=== PATIENT | male | born 1985 | race Caucasian/White ===

== ENCOUNTER 2017-02-16 11:49 | Emergency (ER) | payer OTHER ==
[~2017-02-16] VITALS: Ht 167.6 cm; Wt 142.9 kg
[~2017-02-16 11:49] MED LIST: AMLO10TA2 PO; CITA20TA9 PO; NICO1PAT15 TOP
--- OUTSIDE RECORDS SUMMARY | 2017-02-16 11:52 | XMS REPORT | Continuity of Care Document ---
Author Author [facility] Organization [facility] Address Unknown Phone Unavailable Support Name Relationship Address Phone NGOC BURKETT Caregiver [facility] [address] [place] [address] ANNE GRANT MD Caregiver [address] [place] [address] COMPA CLAIRE Next Of Kin [address] [place] [address] Insurance Providers Payer Name Policy Number Subscriber Name Relationship Self Pay Rodríguez Lopez 17 Self Problems Medical Problems Problem Onset Date Status Uvular edema Unknown Active Pharyngitis Unknown Active Uvular edema Unknown Active Diverticulitis Unknown Active Diverticulitis Unknown Active Lumbar strain Unknown Active Lumbar strain Unknown Active Medications Medication Dose Route Sig Days/Qty Instructions Order Date Discontinued Date Status [None] 02/13/10 02/22/10 Discontinued [Cepacol] 02/22/10 10/15/12 Discontinued Erythromycin Base THREE TIMES A DAY 02/22/10 10/15/12 Discontinued Hydrocodone Bit/Acetaminophen 02/22/10 10/15/12 Discontinued Citalopram Hydrobromide 30 Mg PO DAILY 10/15/12 Active Tramadol HCl 50 Mg PO EVERY 6-8 HOURS PRN PRN ORDERS 20 Qty 12/25/14 Active Methocarbamol 750 Mg PO THREE TIMES A DAY For SPASMS 12 Qty Take 1 tablet , by mouth, 3 times a day. 12/25/14 Active Social History Social History Problem Response Recorded Date/Time Hx Substance Use No 12/25/2014 6:03pm Hx Alcohol Use No 12/25/2014 6:03pm Tobacco Usage none 09/30/2014 3:21pm Query Response Start Date Stop Date Smoking Status Current every day smoker Hospital Discharge Instructions No hospital discharge instructions. Plan of Care No plan of care. Functional Status Query Response Date Recorded Physical Hygiene Self December 25, 2014 6:03pm Disabilities None December 25, 2014 6:03pm Devices Used None December 25, 2014 6:03pm Dressing Self December 25, 2014 6:03pm Ambulation Self December 25, 2014 6:03pm Diet Self December 25, 2014 6:03pm Mental Status Alert Oriented December 25, 2014 6:03pm Disabilities None December 25, 2014 6:03pm Devices Used None December 25, 2014 6:03pm Physical Hygiene Self December 25, 2014 6:03pm Dressing Self December 25, 2014 6:03pm Ambulation Self December 25, 2014 6:03pm Diet Self December 25, 2014 6:03pm Allergies, Adverse Reactions, Alerts Allergen Type Severity Reaction Status Last Updated hydroxyzine HCl Allergy Unknown Active 09/30/14 Penicillin Allergy Unknown Active 09/30/14 [place] Allergy Mild diarrhea Active 09/30/14 Cefaclor Allergy Unknown Active 09/30/14 Aripiprazole Allergy Mild Parkinsonian effects Active 09/30/14 [place] Allergy Mild Hives Active 11/09/09 Immunizations Name Given Type Hx Influenza Vaccination No Historical Hx Influenza Vaccination No Historical Vital Signs Acute Vital Signs Vital Response Date/Time Temperature (Fahrenheit) 96.3 deg F (96.8 - 99.1) Temperature (Calculated Celsius) 35.87570 degrees C (36.0 - 37.3) Pulse Rate (adult) 83 bpm (60 - 100) Respiratory Rate 16 breaths/min (10 - 20) O2 Sat by Pulse Oximetry 95 % (90 - 100) Blood Pressure 165/83 mm Hg Height 5 ft 6 in Weight 352 lb Body Mass Index 56.0 kg/m^2 Results Test Source Date Result Interp. Ref. Range Comments Acetaminophen Level November 09, 2009 9:55pm < 10 UG/ML L 10-30 Alanine Aminotransferase (ALT/SGPT) September 30, 2014 11:42am 54 U/L N 21-72 Albumin September 30, 2014 11:42am 4.3 G/DL N 3.5-5.0 Albumin/Globulin Ratio September 30, 2014 11:42am 1.1 RATIO N 1.1-2.2 Alcohol, Quantitative November 09, 2009 9:55pm <10 MG/DL - Alkaline Phosphatase September 30, 2014 11:42am 89 U/L N 38-126 Amylase Level September 30, 2014 11:42am 39 U/L N 30-110 Anion Gap September 30, 2014 11:42am 9 MEQ/L N 5-15 Aspartate Amino Transf (AST/SGOT) September 30, 2014 11:42am 39 U/L N 17- 59 BUN/Creatinine Ratio September 30, 2014 11:42am 13 RATIO N 6-26 Band Neutrophils # September 30, 2014 11:42am 0.4 T/MM3 - Band Neutrophils % September 30, 2014 11:42am 3.0 % N 0-6 Basophils # (Auto) November 09, 2009 9:55pm 0.1 T/MM3 N 0-0.2 Basophils (%) (Auto) November 09, 2009 9:55pm 1.3 % N 0-2 Blood Smear Pathologist Review October 15, 2012 6:08am Sent for review - Blood Urea Nitrogen September 30, 2014 11:42am 12.0 MG/DL N 9-20 Calcium Level September 30, 2014 11:42am 9.1 MG/DL N 8.4-10.2 Calculated Osmolality September 30, 2014 11:42am 271 MOSM/KG N 261-280 Carbon Dioxide Level September 30, 2014 11:42am 29 MEQ/L N 22-30 Chloride Level September 30, 2014 11:42am 103 MEQ/L N 98-107 Creatinine September 30, 2014 11:42am 0.9 MG/DL N 0.8-1.5 Differential Total Cells Counted February 16, 2010 8:42pm 100 % - Eosinophils # (Auto) November 09, 2009 9:55pm 0.4 T/MM3 N 0-0.5 Eosinophils # (Manual) September 30, 2014 11:42am 0.6 T/MM3 H 0-0.5 Eosinophils % (Manual) September 30, 2014 11:42am 4.0 % N 0-4 Eosinophils (%) (Auto) November 09, 2009 9:55pm 3.1 % N 0-4 Globulin September 30, 2014 11:42am 3.8 G/DL H 2.4-3.6 Glucose Level September 30, 2014 11:42am 93 MG/DL N 75-110 Group A Streptococcus Screen July 24, 2014 8:38am Negative - Strep culture confirmation to follow Hematocrit September 30, 2014 11:42am 49.3 % N 41-53 Hemoglobin September 30, 2014 11:42am 16.4 GM/DL N 13.5-17.5 Influenza Type A Antigen February 13, 2010 11:15am Negative - Influenza Type B Antigen February 13, 2010 11:15am Negative - Leukocyte Alkaline Phosphatase October 15, 2012 6:08am Ref lab rpt scanned - --- 10/16/12 1341 ---LAP previously reported as: SEND OUT Lipase September 30, 2014 11:42am 83 U/L N 23-300 Lymphocytes # (Auto) November 09, 2009 9:55pm 3.3 T/MM3 N 1-4.8 Lymphocytes # (Manual) September 30, 2014 11:42am 2.2 T/MM3 N 1-4.8 Lymphocytes % (Manual) September 30, 2014 11:42am 15.0 % L 23-45 Lymphocytes (%) (Auto) November 09, 2009 9:55pm 29.0 % N 23-45 Mean Corpuscular Hemoglobin September 30, 2014 11:42am 32.7 UUG N 26-34 Mean Corpuscular Hemoglobin Concent September 30, 2014 11:42am 33.3 GM/DL N 31-37 Mean Corpuscular Volume September 30, 2014 11:42am 98.2 UM3 N 80-100 Mean Platelet Volume September 30, 2014 11:42am 10.5 UM3 N 9.4-12.4 Monocytes # (Auto) November 09, 2009 9:55pm 0.9 T/MM3 H 0-0.8 Monocytes # (Manual) September 30, 2014 11:42am 0.4 T/MM3 N 0-0.8 Monocytes % (Manual) September 30, 2014 11:42am 3.0 % N 0-9.0 Monocytes (%) (Auto) November 09, 2009 9:55pm 8.1 % N 0-9.0 Monoscreen February 16, 2010 8:42pm Negative - Neutrophils # (Auto) November 09, 2009 9:55pm 6.6 T/MM3 N 1.8-7.7 Neutrophils # (Manual) September 30, 2014 11:42am 11.1 T/MM3 H 1.8-7.7 Neutrophils % (Manual) September 30, 2014 11:42am 75.0 % H 33-66 Neutrophils (%) (Auto) November 09, 2009 9:55pm 58.5 % N 33-66 Platelet Count September 30, 2014 11:42am 245 T/MM3 N 130-400 Potassium Level September 30, 2014 11:42am 4.7 MEQ/L N 3.6-5 RDW Standard Deviation September 30, 2014 11:42am 48.1 FL N 36.9-50.2 Red Blood Count September 30, 2014 11:42am 5.02 M/MM3 N 4.50-5.90 Salicylates Level November 09, 2009 9:55pm < 1.0 MG/DL L 2-20 Sodium Level September 30, 2014 11:42am 141 MEQ/L N 134-144 Tests Not Done November 09, 2009 9:45pm Not done - Has specimen been collected/obtained? Y Thyroid Stimulating Hormone (TSH) August 07, 2012 3:50pm 2.27 MIU/L N 0.47-4.68 Total Bilirubin September 30, 2014 11:42am 0.90 MG/DL N 0.20-1.30 Total Protein September 30, 2014 11:42am 8.1 G/DL N 6.3-8.2 Urine Amphetamines Screen November 09, 2009 9:45pm Negative - Urine Barbiturates Screen November 09, 2009 9:45pm Negative - Urine Benzodiazepines Screen November 09, 2009 9:45pm Negative - Urine Bilirubin September 30, 2014 1:20pm Negative - Has specimen been collected/obtained? Y Urine Blood September 30, 2014 1:20pm Negative - Has specimen been collected/obtained? Y Urine Cocaine Screen November 09, 2009 9:45pm Negative - Urine Collection Type September 30, 2014 1:20pm Cleancatch-midstream - Has specimen been collected/obtained? Y Urine Color September 30, 2014 1:20pm Yellow - Has specimen been collected/obtained? Y Urine Glucose (UA) September 30, 2014 1:20pm Negative - Has specimen been collected/obtained? Y Urine Ketones September 30, 2014 1:20pm Negative - Has specimen been collected/obtained? Y Urine Leukocyte Esterase September 30, 2014 1:20pm Negative - Has specimen been collected/obtained? Y Urine Nitrite September 30, 2014 1:20pm Negative - Has specimen been collected/obtained? Y Urine Opiates Screen November 09, 2009 9:45pm Negative - Urine Phencyclidine Screen November 09, 2009 9:45pm Negative - Urine Protein September 30, 2014 1:20pm Negative - Has specimen been collected/obtained? Y Urine Specific [place] September 30, 2014 1:20pm <=1.005 L - Has specimen been collected/obtained? Y Urine Tricyclic Antidepressants November 09, 2009 9:45pm Negative - Urine Turbidity September 30, 2014 1:20pm Clear - Has specimen been collected/obtained? Y Urine Urobilinogen September 30, 2014 1:20pm 0.2 EU/DL - Has specimen been collected/obtained? Y Urine pH September 30, 2014 1:20pm 5.5 - Has specimen been collected/ obtained? Y Vitamin B12 Level October 15, 2012 6:08am 304 PG/ML N 239-931 White Blood Count September 30, 2014 11:42am 14.8 T/MM3 H 4.5-11.0 Chemistry Specimen Hemolysis September 30, 2014 11:42am 114 H 0-25 0-25 : No Hemolysis.26-70: Slight Hemolysis - can falsely elevate K and Urine Protein. 71-285: Moderate Hemolysis - can falsely elevate K, Troponin I, CA 19-9, PTH, CSF GLucose, and Urine Protein, and can falsely decrease Phenytoin. 286-999: Gross Hemolysis - can falsely elevate K, Troponin I, CA 19-9, PTH, CSF Glucose, and Urine Protine, and can falsely decrease Phenytoin. Recommend specimen recollection. Urinalysis Comment September 30, 2014 1:20pm Microscopic not ind. - Has specimen been collected/obtained? Y Lab Scanned Report October 16, 2012 1:43pm REFER[facility] LAB [id number] - Urine Cannabinoids Screen November 09, 2009 9:45pm Negative - Turbidity September 30, 2014 11:42am < 20 0-20 Reactive Lymphocytes % October 08, 2012 5:17pm 12.0 % DH 0-0 Glomerular Filtration Rate Calc September 30, 2014 11:42am 99 - Reactive Lymphocytes # October 08, 2012 5:17pm 1.8 T/MM3 H 0-0 Icterus Index September 30, 2014 11:42am < 2 0-7 Group A Streptococcus Culture Throat July 24, 2014 8:54am Name: RODRÍGUEZ LOPEZ Unit #: [id number] : 1985 Sex: M [facility] [place]: ED DOS: 09/30/14 Signed Report #: [id number] DIAGNOSTIC IMAGING REPORT TYPE OF EXAM: CT ABD/PELVIS W/CONTRAST ONLY Dictated By: ERICKA WARREN MD INDICATION: ITS.REASON: abdominal pain CT ABD/PELVIS W/CONTRAST ONLY: Comparison: None Technique: Axial CT images were performed through the abdomen and pelvis after the administration of intravenous contrast. Contrast: Omnipaque 300 100 mL Findings: The lung bases are grossly clear. The liver is decreased in attenuation relative to the spleen consistent with steatosis. Large gallstone within the gallbladder. No obvious pericholecystic inflammatory change or fluid however. The spleen, pancreas and adrenal glands are within normal limits. Kidneys appear normal. No abdominal or pelvic lymphadenopathy. Bladder appears normal. Prostate and rectum are normal. No free fluid. Inflammatory changes are seen adjacent to the proximal sigmoid colon. No extraluminal gas or abscess. There are some fluid-filled mildly prominent loops of small bowel near this area probably representing a reactive ileus. These measure up to 3.7 cm in diameter. Remainder of the small and large bowel appear normal. The appendix is normal. Bone windows are normal. Impression: 1. Acute uncomplicated sigmoid diverticulitis. 2. Cholelithiasis. 3. Hepatic steatosis. . Procedures Procedure Status Date Provider(s) HYDRATE IV INFUSION ADD-ON completed 09/30/14 THER/PROPH/DIAG IV INF INIT completed 09/30/14 TX/PRO/DX INJ NEW DRUG ADDON completed 09/30/14 TX/PRO/DX INJ NEW DRUG ADDON completed 09/30/14 Encounters Encounter Location Date/Time Registered Emergency Room [facility] 12/25/14 5:54pm Departed Emergency Room [facility] 09/30/14 11:16am Recent Diagnosis
--- OUTSIDE RECORDS SUMMARY | 2017-02-16 11:52 | XMS REPORT | Continuity of Care Document ---
Author Author [facility] Organization [facility] Address Unknown Phone Unavailable Allergies Active Description Code Type Severity Reaction Onset Reported/Identified Relationship to Patient Clinical Status Yes cefaclor NKMA N/A N/A 03/15/2014 Medications Problems Procedures Results Encounters ACCT No. Visit Date/Time Discharge Status Pt. Type Provider Facility Loc./Unit Complaint [id number] 02/01/2016 09:57:00 2015 23:59:00 DIS Outpatient Meenakshi Granados [facility] PO [id number] 01/07/2016 11:44:00 2015 23:59:00 DIS Outpatient Raj Garcia [facility] HERNIA
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
--- OUTSIDE RECORDS SUMMARY | 2017-02-16 11:52 | XMS REPORT | Continuity of Care Document ---
Author Author [facility] Organization [facility] Address Unknown Phone Unavailable Support Name Relationship Address Phone ANNE GRANT MD Caregiver [address] [place], [place] [id number] CYDNEY SANABRIA MD Caregiver [address] [place] [address] [place] [phone] [employer] Next Of Kin [address] [place] [address] Insurance Providers Payer Name Policy Number Subscriber Name Relationship Self Pay Rodríguez Lopez 18 Self Problems Medical Problems Problem Onset Date Status Uvular edema Unknown Active Pharyngitis Unknown Active Medications Medication Dose Route Sig Days/Qty Instructions Order Date Discontinued Date Status [None] 02/13/10 02/22/10 Discontinued [Cepacol] 02/22/10 10/15/12 Discontinued Erythromycin Base THREE TIMES A DAY 02/22/10 10/15/12 Discontinued [Ibuprofen] 02/22/10 Active Hydrocodone Bit/Acetaminophen 02/22/10 10/15/12 Discontinued Olanzapine 5 Mg PO DAILY 10/15/12 Active Citalopram Hydrobromide 30 Mg PO DAILY 10/15/12 Active Naproxen 200 Mg PO NEEDED 10/15/12 Active Azithromycin 1 Tab PO DAILY 4 Qty YOU RECEIVED TWO TABS TODAY IN ER. 10/25 Active Social History Social History Problem Response Recorded Date/Time Smoking Status Heavy Smoker 07/24/2014 8:22am When did patient START smoking? AGE 11 07/24/2014 8:22am Chewing Tobacco Status No 07/24/2014 8:22am Hx Substance Use No 07/24/2014 8:22am Hx Alcohol Use No 07/24/2014 8:22am Query Response Start Date Stop Date Smoking Status Current every day smoker Hospital Discharge Instructions No hospital discharge instructions. Plan of Care No plan of care. Functional Status Query Response Date Recorded Physical Hygiene Self July 24, 2014 8:22am Disabilities None July 24, 2014 8:22am Devices Used None July 24, 2014 8:22am Dressing Self July 24, 2014 8:22am Ambulation Self July 24, 2014 8:22am Diet Self July 24, 2014 8:22am Mental Status Alert Oriented July 24, 2014 8:22am Disabilities None July 24, 2014 8:22am Devices Used None July 24, 2014 8:22am Physical Hygiene Self July 24, 2014 8:22am Dressing Self July 24, 2014 8:22am Ambulation Self July 24, 2014 8:22am Diet Self July 24, 2014 8:22am Allergies, Adverse Reactions, Alerts Allergen Type Severity Reaction Status Last Updated hydroxyzine HCl Allergy Unknown Active 07/24/14 Penicillin Allergy Unknown Active 07/24/14 Kieler Allergy Mild diarrhea Active 07/24/14 Cefaclor Allergy Unknown Active 07/24/14 Aripiprazole Allergy Mild Parkinsonian effects Active 07/24/14 MORPHENE Allergy Mild Hives Active 11/09/09 Immunizations Name Given Type Hx Influenza Vaccination No Historical Hx Influenza Vaccination No Historical Vital Signs Acute Vital Signs Vital Response Date/Time Temperature (Fahrenheit) 96.6 deg F (96.8 - 99.1) Temperature (Calculated Celsius) 35.90502 degrees C (36.0 - 37.3) Pulse Rate (adult) 90 bpm (60 - 100) Respiratory Rate 16 breaths/min (10 - 20) O2 Sat by Pulse Oximetry 94 % (90 - 100) Blood Pressure 161/100 mm Hg Height 5 ft 6 in Weight 331 lb Body Mass Index 53.0 kg/m^2 Results Test Source Date Result Interp. Ref. Range Comments Acetaminophen Level November 09, 2009 9:55pm < 10 UG/ML L 10-30 Alanine Aminotransferase (ALT/SGPT) February 22, 2010 7:10pm 18 U/L L 21- 72 Albumin February 22, 2010 7:10pm 4.38 G/DL N 3.5-5.0 Albumin/Globulin Ratio February 22, 2010 7:10pm 1.0 RATIO L 1.1-2.2 Alcohol, Quantitative November 09, 2009 9:55pm <10 MG/DL - Alkaline Phosphatase February 22, 2010 7:10pm 99 U/L N 38-126 Anion Gap February 22, 2010 7:10pm 10.8 MEQ/L N 5-15 Aspartate Amino Transf (AST/SGOT) February 22, 2010 7:10pm 34 U/L N 17-59 BUN/Creatinine Ratio February 22, 2010 7:10pm 9 RATIO N 6-26 Band Neutrophils # October 08, 2012 5:17pm 1.1 T/MM3 - Band Neutrophils % October 08, 2012 5:17pm 7.0 % H 0-6 Basophils # (Auto) November 09, 2009 9:55pm 0.1 T/MM3 N 0-0.2 Basophils (%) (Auto) November 09, 2009 9:55pm 1.3 % N 0-2 Blood Smear Pathologist Review October 15, 2012 6:08am Sent for review - Blood Urea Nitrogen February 22, 2010 7:10pm 8.9 MG/DL L 9-20 Calcium Level February 22, 2010 7:10pm 9.6 MG/DL N 8.4-10.2 Calculated Osmolality February 22, 2010 7:10pm 269 MOSM/KG N 261-280 Carbon Dioxide Level February 22, 2010 7:10pm 31 MEQ/L H 22-30 Chloride Level February 22, 2010 7:10pm 99 MEQ/L N 98-107 Creatinine February 22, 2010 7:10pm 1.0 MG/DL N 0.8-1.5 Differential Total Cells Counted February 16, 2010 8:42pm 100 % - Eosinophils # (Auto) November 09, 2009 9:55pm 0.4 T/MM3 N 0-0.5 Eosinophils # (Manual) October 08, 2012 5:17pm 0.3 T/MM3 N 0-0.5 Eosinophils % (Manual) October 08, 2012 5:17pm 2.0 % N 0-4 Eosinophils (%) (Auto) November 09, 2009 9:55pm 3.1 % N 0-4 Globulin February 22, 2010 7:10pm 4.4 G/DL H 2.4-3.6 Glucose Level February 22, 2010 7:10pm 85 MG/DL N 75-110 Group A Streptococcus Screen July 24, 2014 8:38am Negative - Strep culture confirmation to follow Hematocrit October 08, 2012 5:17pm 50.7 % N 41-53 Hemoglobin October 08, 2012 5:17pm 16.9 GM/DL N 13.5-17.5 Influenza Type A Antigen February 13, 2010 11:15am Negative - Influenza Type B Antigen February 13, 2010 11:15am Negative - Leukocyte Alkaline Phosphatase October 15, 2012 6:08am Ref lab rpt scanned - --- 10/16/12 1341 ---LAP previously reported as: SEND OUT Lymphocytes # (Auto) November 09, 2009 9:55pm 3.3 T/MM3 N 1-4.8 Lymphocytes # (Manual) October 08, 2012 5:17pm 2.9 T/MM3 N 1-4.8 Lymphocytes % (Manual) October 08, 2012 5:17pm 19.0 % L 23-45 Lymphocytes (%) (Auto) November 09, 2009 9:55pm 29.0 % N 23-45 Mean Corpuscular Hemoglobin October 08, 2012 5:17pm 32.5 UUG N 26-34 Mean Corpuscular Hemoglobin Concent October 08, 2012 5:17pm 33.3 GM/DL N 31-37 Mean Corpuscular Volume October 08, 2012 5:17pm 97.5 UM3 N 80-100 Mean Platelet Volume October 08, 2012 5:17pm 10.6 UM3 N 9.4-12.4 Monocytes # (Auto) November 09, 2009 9:55pm 0.9 T/MM3 H 0-0.8 Monocytes # (Manual) October 08, 2012 5:17pm 0.9 T/MM3 H 0-0.8 Monocytes % (Manual) October 08, 2012 5:17pm 6.0 % N 0-9.0 Monocytes (%) (Auto) November 09, 2009 9:55pm 8.1 % N 0-9.0 Monoscreen February 16, 2010 8:42pm Negative - Neutrophils # (Auto) November 09, 2009 9:55pm 6.6 T/MM3 N 1.8-7.7 Neutrophils # (Manual) October 08, 2012 5:17pm 8.1 T/MM3 H 1.8-7.7 Neutrophils % (Manual) October 08, 2012 5:17pm 54.0 % N 33-66 Neutrophils (%) (Auto) November 09, 2009 9:55pm 58.5 % N 33-66 Platelet Count October 08, 2012 5:17pm 267 T/MM3 N 130-400 Potassium Level February 22, 2010 7:10pm 4.8 MEQ/L DN 3.6-5 RDW Standard Deviation October 08, 2012 5:17pm 45.9 FL N 36.9-50.2 Red Blood Count October 08, 2012 5:17pm 5.20 M/MM3 N 4.50-5.90 Salicylates Level November 09, 2009 9:55pm < 1.0 MG/DL L 2-20 Sodium Level February 22, 2010 7:10pm 141 MEQ/L N 134-144 Tests Not Done November 09, 2009 9:45pm Not done - Has specimen been collected/obtained? Y Thyroid Stimulating Hormone (TSH) August 07, 2012 3:50pm 2.27 MIU/L N 0.47-4.68 Total Bilirubin February 22, 2010 7:10pm 0.46 MG/DL N 0.20-1.30 Total Protein February 22, 2010 7:10pm 8.8 G/DL H 6.3-8.2 Urine Amphetamines Screen November 09, 2009 9:45pm Negative - Urine Barbiturates Screen November 09, 2009 9:45pm Negative - Urine Benzodiazepines Screen November 09, 2009 9:45pm Negative - Urine Bilirubin November 09, 2009 9:45pm Negative - Has specimen been collected/obtained? Y Urine Blood November 09, 2009 9:45pm Negative - Has specimen been collected/obtained? Y Urine Cocaine Screen November 09, 2009 9:45pm Negative - Urine Collection Type November 09, 2009 9:45pm Voided - Has specimen been collected/obtained? Y Urine Color November 09, 2009 9:45pm Yellow - Has specimen been collected/obtained? Y Urine Glucose (UA) November 09, 2009 9:45pm Negative - Has specimen been collected/obtained? Y Urine Ketones November 09, 2009 9:45pm Negative - Has specimen been collected/obtained? Y Urine Leukocyte Esterase November 09, 2009 9:45pm Negative - Has specimen been collected/obtained? Y Urine Nitrite November 09, 2009 9:45pm Negative - Has specimen been collected/obtained? Y Urine Opiates Screen November 09, 2009 9:45pm Negative - Urine Phencyclidine Screen November 09, 2009 9:45pm Negative - Urine Protein November 09, 2009 9:45pm Negative - Has specimen been collected/obtained? Y Urine Specific [place] November 09, 2009 9:45pm 1.010 L - Has specimen been collected/obtained? Y Urine Tricyclic Antidepressants November 09, 2009 9:45pm Negative - Urine Turbidity November 09, 2009 9:45pm Clear - Has specimen been collected/obtained? Y Urine Urobilinogen November 09, 2009 9:45pm Normal EU/DL - Has specimen been collected/obtained? Y Urine pH November 09, 2009 9:45pm 8.0 - Has specimen been collected/ obtained? Y Vitamin B12 Level October 15, 2012 6:08am 304 PG/ML N 239-931 White Blood Count October 08, 2012 5:17pm 15.0 T/MM3 H 4.5-11.0 Lab Scanned Report October 16, 2012 1:43pm [facility] [id number] - Urine Cannabinoids Screen November 09, 2009 9:45pm Negative - Reactive Lymphocytes % October 08, 2012 5:17pm 12.0 % DH 0-0 Glomerular Filtration Rate Calc February 22, 2010 7:10pm 91 - Reactive Lymphocytes # October 08, 2012 5:17pm 1.8 T/MM3 H 0-0 Group A Streptococcus Culture Throat February 13, 2010 11:15am Procedures No known history of procedures. Encounters Encounter Location Date/Time Departed Emergency Room [facility] 07/24/14 8:06am Recent Diagnosis
--- OUTSIDE RECORDS SUMMARY | 2017-02-16 11:52 | XMS REPORT | Continuity of Care Document ---
Author Author [facility] Organization [facility] Address Unknown Phone Unavailable Support Name Relationship Address Phone NGOC BURKETT DO Caregiver [facility] [address] [place] [address] ANNE GRANT MD Caregiver [address] [place] [address] [employer] Next Of Kin [address] [place] [address] Insurance Providers Payer Name Policy Number Subscriber Name Relationship Self Pay Rodríguez Lopez 18 Self Problems Medical Problems Problem Onset Date Status Uvular edema Unknown Active Pharyngitis Unknown Active Uvular edema Unknown Active Diverticulitis Unknown Active Medications Medication Dose Route Sig Days/Qty Instructions Order Date Discontinued Date Status [None] 02/13/10 02/22/10 Discontinued [Cepacol] 02/22/10 10/15/12 Discontinued Erythromycin Base THREE TIMES A DAY 02/22/10 10/15/12 Discontinued Hydrocodone Bit/Acetaminophen 02/22/10 10/15/12 Discontinued Citalopram Hydrobromide 30 Mg PO DAILY 10/15/12 Active Metronidazole 500 Mg PO Q6H/0300,0900,1500,2100 For diverticulitis 7 Days Take 1 tablet, by mouth, every 6 hours. 09/30/14 Active Ciprofloxacin HCl 500 Mg PO EVERY 12 HOURS For diverticulitis 7 Days Active Hydrocodone/Acetaminophen 1 Tab PO EVERY 4-6 HOURS PRN PAIN 20 Qty Active Ondansetron 4 Mg PO EVERY 4-6 HOURS For nausea 12 Qty 09/30/14 Active Social History Social History Problem Response Recorded Date/Time Smoking Status Light Smoker 09/30/2014 11:26am When did patient START smoking? AGE 12 09/30/2014 11:26am Hx Substance Use No 09/30/2014 11:26am Hx Alcohol Use No 09/30/2014 11:26am Query Response Start Date Stop Date Smoking Status Current every day smoker Hospital Discharge Instructions No hospital discharge instructions. Plan of Care No plan of care. Functional Status Query Response Date Recorded Physical Hygiene Self September 30, 2014 11:26am Disabilities None September 30, 2014 11:26am Devices Used None September 30, 2014 11:26am Dressing Self September 30, 2014 11:26am Ambulation Self September 30, 2014 11:26am Diet Self September 30, 2014 11:26am Mental Status Alert Oriented September 30, 2014 11:26am Disabilities None September 30, 2014 11:26am Devices Used None September 30, 2014 11:26am Physical Hygiene Self September 30, 2014 11:26am Dressing Self September 30, 2014 11:26am Ambulation Self September 30, 2014 11:26am Diet Self September 30, 2014 11:26am Allergies, Adverse Reactions, Alerts Allergen Type Severity Reaction Status Last Updated hydroxyzine HCl Allergy Unknown Active 09/30/14 Penicillin Allergy Unknown Active 09/30/14 Brenda Allergy Mild diarrhea Active 09/30/14 Cefaclor Allergy Unknown Active 09/30/14 Aripiprazole Allergy Mild Parkinsonian effects Active 09/30/14 MORPHENE Allergy Mild Hives Active 11/09/09 Immunizations Name Given Type Hx Influenza Vaccination No Historical Hx Influenza Vaccination No Historical Vital Signs Acute Vital Signs Vital Response Date/Time Temperature (Fahrenheit) 97.8 deg F (96.8 - 99.1) Temperature (Calculated Celsius) 36.73447 degrees C (36.0 - 37.3) Pulse Rate (adult) 75 bpm (60 - 100) Respiratory Rate 16 breaths/min (10 - 20) O2 Sat by Pulse Oximetry 97 % (90 - 100) Blood Pressure 166/84 mm Hg Height 5 ft 5 in Weight 353 lb Body Mass Index 58.0 kg/m^2 Results Test Source Date Result Interp. [...] Has specimen been collected/obtained? Y Urine Specific [place] September 30, 2014 1:20pm <=1.005 L - [...] Report October 16, 2012 1:43pm [facility] [id number] - Urine Cannabinoids Screen November 09, 2009 [...] 2014 8:54am Name: RODRÍGUEZ LOPEZ Unit #: [id number] : 1985 Sex: M Loc / Svc: ED DOS: 09/30/14 Signed Report #: [id number] DIAGNOSTIC IMAGING REPORT TYPE OF EXAM: CT [...] 2. Cholelithiasis. 3. Hepatic steatosis. . Procedures No known history of procedures. Encounters Encounter Location Date/Time Departed Emergency Room [facility] 09/30/14 11:16am Departed Emergency Room [facility] 07/24/14 8:06am Recent Diagnosis
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
[2017-02-16 11:53] VITALS: Ht 167.6 cm; Wt 142.9 kg
[2017-02-16] MEDS ORDERED: LISI1TAB13 PO (12:12)
[2017-02-16] MEDS ORDERED: CITA20TA9 PO (12:13)
[2017-02-16] MEDS ORDERED: IBUP-2067 PO (12:14)
[2017-02-16] MEDS ORDERED: CLIN300C86 PO (12:15)
--- NOTE | 2017-02-16 12:55 | NUR ---
OFFICER SERGEANT Primo VALDEZ AT BEDSIDE WITH PT, HAS REMAINED THERE SINCE ADMISSION TO ER. PT REMAINS IN HAND CUFFS, CHAIN AROUND WAIST.
--- OUTSIDE RECORDS SUMMARY | 2017-02-16 12:56 | XMS REPORT | Continuity of Care Document ---
Author Author [facility] Organization [facility] Address Unknown Phone Unavailable Support Name Relationship Address Phone ANNE GRANT MD Caregiver [address] [place], [place] [id number] CYDNEY SANABRIA MD Caregiver [address] [place] [address] [place] [phone] [employer] Next Of Kin [address] [place] [address] Insurance Providers Payer Name Policy Number Subscriber [...] Active 07/24/14 Penicillin Allergy Unknown Active 07/24/14 [employer] Allergy Mild diarrhea Active 07/24/14 Cefaclor Allergy Unknown Active 07/24/14 Aripiprazole Allergy Mild Parkinsonian effects Active 07/24/14 MORPHENE Allergy Mild Hives Active 11/09/09 Immunizations Name Given Type Hx Influenza Vaccination No Historical Hx Influenza Vaccination No Historical Vital Signs Acute Vital Signs Vital Response Date/Time Temperature (Fahrenheit) 96.6 deg F (96.8 - 99.1) Temperature (Calculated Celsius) 35.87541 degrees C (36.0 - 37.3) Pulse Rate [...] Has specimen been collected/obtained? Y Urine Specific [place] November 09, 2009 9:45pm 1.010 L - [...] Report October 16, 2012 1:43pm [facility] [id number] - Urine Cannabinoids Screen November 09, 2009 [...] Encounters Encounter Location Date/Time Departed Emergency Room [facility] 07/24/14 8:06am Recent Diagnosis
--- OUTSIDE RECORDS SUMMARY | 2017-02-16 12:57 | XMS REPORT | Continuity of Care Document ---
Author Author [facility] Organization [facility] Address Unknown Phone Unavailable Support Name Relationship Address Phone NGOC BURKETT Caregiver [facility] [address] [place] [address] ANNE GRANT MD Caregiver [address] [place] [address] COMPA CLAIRE Next Of Kin [address] [place] [address] Insurance Providers Payer Name Policy Number Subscriber [...] Active 09/30/14 Penicillin Allergy Unknown Active 09/30/14 [place] Allergy Mild diarrhea Active 09/30/14 Cefaclor Allergy Unknown Active 09/30/14 Aripiprazole Allergy Mild Parkinsonian effects Active 09/30/14 MORPHENE Allergy Mild Hives Active 11/09/09 Immunizations Name Given Type Hx Influenza Vaccination No Historical Hx Influenza Vaccination No Historical Vital Signs Acute Vital Signs Vital Response Date/Time Temperature (Fahrenheit) 96.3 deg F (96.8 - 99.1) Temperature (Calculated Celsius) 35.87450 degrees C (36.0 - 37.3) Pulse Rate [...] Has specimen been collected/obtained? Y Urine Specific [place] September 30, 2014 1:20pm <=1.005 L - [...] Report October 16, 2012 1:43pm REFERENCE LAB [id number] - Urine Cannabinoids Screen November 09, 2009 [...] 2014 8:54am Name: RODRÍGUEZ LOPEZ Unit #: [id number] : 1985 Sex: M [facility]: ED DOS: 09/30/14 Signed Report #: [id number] DIAGNOSTIC IMAGING REPORT TYPE OF EXAM: CT [...] Encounters Encounter Location Date/Time Registered Emergency Room [facility] 12/25/14 5:54pm Departed Emergency Room [facility] 09/30/14 11:16am Recent Diagnosis
--- OUTSIDE RECORDS SUMMARY | 2017-02-16 12:57 | XMS REPORT | Continuity of Care Document ---
Author Author [facility] Organization [facility] Address Unknown Phone Unavailable Support Name Relationship Address Phone NGOC BURKETT DO Caregiver [facility] [address] [address] ANNE GRANT MD Caregiver [address] [place] [address] COMPA OLESYATwan Next Of Kin [address] [place] [address] Insurance Providers Payer Name Policy Number Subscriber [...] Active 09/30/14 Penicillin Allergy Unknown Active 09/30/14 [place]wey Allergy Mild diarrhea Active 09/30/14 Cefaclor Allergy Unknown Active 09/30/14 Aripiprazole Allergy Mild Parkinsonian effects Active 09/30/14 MORPHENE Allergy Mild Hives Active 11/09/09 Immunizations Name Given Type Hx Influenza Vaccination No Historical Hx Influenza Vaccination No Historical Vital Signs Acute Vital Signs Vital Response Date/Time Temperature (Fahrenheit) 97.8 deg F (96.8 - 99.1) Temperature (Calculated Celsius) 36.99667 degrees C (36.0 - 37.3) Pulse Rate [...] Has specimen been collected/obtained? Y Urine Specific [place] September 30, 2014 1:20pm <=1.005 L - [...] Report October 16, 2012 1:43pm REFERENCE LAB [id number] - Urine Cannabinoids Screen November 09, 2009 [...] 2014 8:54am Name: RODRÍGUEZ LOPEZ Unit #: [id number] : 1985 Sex: M Loc / Svc: ED DOS: 09/30/14 Signed Report #: [id number] DIAGNOSTIC IMAGING REPORT TYPE OF EXAM: CT [...] Encounters Encounter Location Date/Time Departed Emergency Room [facility] 09/30/14 11:16am Departed Emergency Room [facility] 07/24/14 8:06am Recent Diagnosis
--- OUTSIDE RECORDS SUMMARY | 2017-02-16 12:57 | XMS REPORT | Continuity of Care Document ---
Author Author [facility] Organization [facility] Address Unknown Phone Unavailable Allergies Active Description Code Type Severity Reaction Onset Reported/Identified Relationship to Patient Clinical Status Yes cefaclor NKMA N/A N/A 03/15/2014 Medications Problems Procedures Results Encounters ACCT No. Visit Date/Time Discharge Status Pt. Type Provider Facility Loc./Unit Complaint [id number] 02/01/2016 09:57:00 2015 23:59:00 DIS Outpatient Meenakshi Granados [facility] PO [id number] 01/07/2016 11:44:00 2015 23:59:00 DIS Outpatient Raj Garcia [facility] HERNIA
--- NOTE | 2017-02-16 13:06 | NUR ---
DR DR ESPINOZA AT BEDSIDE.
[2017-02-16] MEDS ORDERED: NORMAL SALINE 1,000 ML IV ONE (13:15)
[2017-02-16 13:31] LABS: BASOPHILS % (AUTO) 0.3 % (0-2); EOSINOPHILS # (AUTO) 0.2 T/MM3 (0-0.5); EOSINOPHILS % (AUTO) 1.9 % (0-4); HCT - HEMATOCRIT 45.4 % (41-53); HGB - HEMOGLOBIN 15.5 GM/DL (13.5-17.5); IMMATURE GRANULOCYTE # (AUTO) 0.02 T/MM3 (0.00-0.03); IMMATURE GRANULOCYTE % (AUTO) 0.2 % (0.0-0.5); LYMPHOCYTES # (AUTO) 2.1 T/MM3 (1-4.8); LYMPHOCYTES % (AUTO) 19.4 % (23-45); MEAN CORPUSCULAR HGB 32.2 UUG (26-34); MEAN CORPUSCULAR HGB CONC(MCHC 34.1 GM/DL (31-37); MEAN CORPUSCULAR VOLUME 94.4 UM3 (80-100); MEAN PLATELET VOLUME 11.1 UM3 (9.4-12.4); MONOCYTES # (AUTO) 0.8 T/MM3 (0-0.8); MONOCYTES % (AUTO) 7.2 % (0-9.0); NEUTROPHILS #(AUTO)-ABSOLUTE 7.6 T/MM3 (1.8-7.7); RED BLOOD COUNT 4.81 M/MM3 (4.50-5.90); WBC - WHITE BLOOD COUNT 10.8 T/MM3 (4.5-11.0)
--- NOTE | 2017-02-16 13:40 | NUR ---
CT PT TO CT [facility].
[2017-02-16 13:41] LABS: ANION GAP 10 MEQ/L (5-15); BUN/CREATININE RATIO 9 RATIO (6-26); CALCIUM 9.7 MG/DL (8.4-10.2); CHLORIDE 107 MEQ/L (98-107); CO2 - CARBON DIOXIDE 29 MEQ/L (22-30); CREATININE 0.7 MG/DL (0.8-1.5); GLOMERULAR FILTRATION RATE 131; GLUCOSE 92 MG/DL (75-110); SODIUM 146 MEQ/L (134-144)
[2017-02-16] MEDS ORDERED: IOHEXOL 300 MG/ML 50ml INJECTION ONE (13:43)
[2017-02-16] MEDS ORDERED: SALINE FLUSH 10ml SYRINGE ONE (13:43)
[2017-02-16] MEDS ORDERED: NORMAL SALINE 100 ML ONE (13:43)
--- NOTE | 2017-02-16 13:51 | NUR ---
CT PT RETURNED.
--- NOTE | 2017-02-16 14:06 | DI ---
Indication: ITS.REASON: dental pain, swelling PROCEDURE: CT MAXILLOFACIAL W/CONTRAST: Encounter: Initial Comparison: None Technique: Axial postcontrast CT imaging through the midface was performed with coronal and sagittal two-dimensional reformats. Automated Exposure Control and Iterative Reconstruction dose reducing techniques were utilized. Contrast: Omnipaque 300 49mL Findings: Dental pathology with a periapical abscess involving the right first mandibular molar. Large dental caries within the mandibular molars and premolars bilaterally. No acute maxillofacial fracture seen. The paranasal sinuses are clear. There is significant inflammation in the left prezygomatic and infraorbital area extending into the left maxillary region where there is a prominent periapical abscess surrounding the left maxillary canine. There is evidence of a small subperiosteal abscess adjacent to the tooth measuring 1 x 0.4 cm on axial image #32. The globes are intact. Lenses are located. No post septal inflammation seen. No drainable fluid collection identified. Small bilateral reactive submandibular lymph nodes are noted. Impression: Periodontal and dental disease with a periapical abscess involving the left maxillary canine which has extended into the soft tissues with a small subperiosteal abscess and extensive cellulitis in the left infraorbital and preseptal area. Recommend dental consultation. .
--- NOTE | 2017-02-16 14:23 | NUR ---
STATUS DR ESPINOZA AT BEDSIDE. PT STATES DENTAL PAIN 7-06/21. SERGEANT REMAINS AT BEDSIDE.
[2017-02-16] MEDS ORDERED: AZITHROMYCIN 500 MG in NORMAL SALINE 250 ML IV ONE (15:15)
--- NOTE | 2017-02-16 15:18 | NUR ---
PHARMACY NOTIFIED PHARMACY OF NEED FOR 500MG IV AZITHROMYCIN IN 250ML.
[2017-02-16] MEDS ORDERED: AZIT500T2 PO (15:27)
--- NOTE | 2017-02-16 15:27 | ERPDOC ---
Departure Disposition Decision Date: Feb 16, 2017 Disposition Decision Time: 15:23 Disposition: 01 DISCHARGED HOME, SELF-CARE Impression Impression Impression: Primary Impression: Pain, dental Additional Impression: Periapical abscess Severity: Moderate Condition: Improved Seen By: Physician only Referrals: [facility] 2 Days Patient Instructions: Dental Abscess (ED), Dental Caries (ED), Toothache (ED) Problems/Meds/Labs Reviewed?: Yes Medications reviewed and manag: Yes Additional Instructions: Please see Dr. Jermain Armas in the office on Sunday. Call for appointment time. [address] [place] [address] Follow up care ordered?: Yes Mental Status: Alert, Oriented Scripts Azithromycin (Zithromax Tri-Reggie) 500 Mg Tablet 500 MG PO DIRECTED, #1 PACK 0 Refills 2 TABLETS FOR 1 DAY THEN, 1 TABLET FOR 4 DAYS Prov: KYLAH ESPINOZA DO 02/16/17 HPI - EENT General General Chief Complaint: Toothache Stated Complaint: TOOTH PAIN, INFECTED TOOTH Time Seen by Provider: 12:29 Source: patient Exam Limitations: no limitations HPI - EENT General Initial Comments 31-year-old male presents to the emergency department with a chief complaint of dental pain. Patient noted dental pain and swelling to the left side of his face 2 weeks ago. Symptoms have been persistent in nature since onset. Symptoms had a gradual progression. Patient was started on clindamycin 2 weeks ago and has been compliant with his medications. He has not noted any improvement in his symptoms. Patient has not followed up with his dentist in the past 2 weeks. Patient denies any systemic symptoms or other complaints. Pain is moderate. Pain is dull. There is no radiation. Pain increases with chewing and direct pressure to the affected area. Occurred At: other (Nursing Home) Onset/Timing: Gradual Allergies: Coded Allergies: aripiprazole (Verified Allergy, Mild, Parkinsonian effects, 02/16/17) lithium (Verified Allergy, Mild, diarrhea, 02/16/17) Penicillins (Verified Allergy, Unknown, 02/16/17) cefaclor (Verified Allergy, Unknown, 02/16/17) hydroxyzine HCl (Verified Allergy, Unknown, 02/16/17) morphine (Verified Adverse Reaction, Mild, HIVES, 02/16/17) Past History Past Medical History ENMT: sleep apnea Respiratory: asthma, pneumonia GI: other Neurological: headaches, migraines Hematologic: DVT Psychological: anxiety, depression, other Surgical History General: other, tonsils Family History Family PMH: FOUND: diabetes, migraines Vaccines Hx Influenza Vaccination: No Hx Pneumococcal Vaccination: No Social History Smoking Status: Current every day smoker Does patient use chewing tobac: No # of Packs/Tins per Day: 1 # of Years: 10 Substance Use Type: does not use Alcohol Intake: none Sexuality: female partner Review of Systems Constitutional Constitutional: DENIES: chills, fever Eyes General: DENIES: erythema, exudate Lids/Accessories: DENIES: erythema, swelling Vision: DENIES: acuity, blurring ENMT Ears: DENIES: drainage, erythema Hearing: DENIES: hearing loss Balance: DENIES: ataxia, falling to one side Sinuses: DENIES: congestion, pain Nose: DENIES: nosebleeds, pain Mouth/Throat: DENIES: painful swallowing, sore throat Teeth: pain Jaw: DENIES: pain Cardiovascular Cardiac: DENIES: chest pain, dyspnea on exertion Rhythm/Rate: DENIES: irregular beat, palpitations Vascular: DENIES: pedal edema, unilateral swelling Pulmonary Respiratory: DENIES: cough, dyspnea, pleuritic chest pain, sputum GI Upper Abdomen: DENIES: nausea, pain, vomiting Lower Abdomen: DENIES: diarrhea, pain General: DENIES: dysuria, frequency Musculoskeletal General: DENIES: joint pain, pain, tenderness Integumentary Skin: DENIES: itching, rash Neurological General: DENIES: headache, numbness, weakness Psychiatric Psychiatric: DENIES: emotional instability, suicidal ideation/attempt Endocrine Endocrine: DENIES: polydipsia, polyphagia Hematologic/Lymphatic Hematologic/Lymphatic: DENIES: frequent nosebleeds, lymphadenopathy Allergic/Immunological Allergic/Immunoligical: DENIES: allergic reactions, hives Physical Exam General General Nourishment: well nourished, well developed, appears stated age, no acute distress, adult General Body Habitus: well groomed Vitals and Pain First Documented Vital Signs Date Time Temp Pulse Resp B/P Pulse Ox O2 Delivery O2 Flow Rate FiO2 02/16/17 11:53 98.3 63 16 124/58 96 Room Air Weight: Kilograms: 142.900 Height (feet): 5 Height (inches): 6.00 Triage Pain Scale: RN VS reviewed by Provider: Yes Normal Exams: Head: Normocephalic w/o trauma Eyes: Pupils are PERRLA w/ EOMI, No scleral icterus, irritation, or foreign bodies noted ENMT: No facial trauma, nasal exudates, pharyngeal erythema, or exudates are noted Neck: Full range of motion, without adenopathy, JVD, bruits or thyromegaly Chest/Resp: Clear all morales, with good airflow, and symmetry bilaterally CV: Regular rate and rhythm, without murmur or gallop, Pulses 2+ all extremities, capillary refill, <2 seconds all ext., no pedal edema noted Abdomen: Bowel sounds positive, soft, non-tender, non-distended, no hepatosplenomegaly, masses or bruits noted Lymphatic: No lymphadenopathy, or lymphedema noted Musculoskeletal: No tenderness, or deformity noted, good range of motion, all extremities Integumentary: No rashes, hives, or bruising noted, hair and nails, without abnormality Neurologic: Patient is alert, and oriented, cranial nerves, motor/sensory/ cerebellar, exams w/o gross deficits, to observation Psychiatric: Patient exhibits, appropriate attention, emotion and affect ENMT (brief) Comments Oral - tooth #13 is tender to percussion. Positive mild facial swelling without cellulitis. Uvula midline. Voice is normal. Handling secretions without difficulty. No pharyngeal erythema. No tonsillar exudate. No elevation of tongue. Diffusely poor dentition with caries noted. Differential Diagnoses Considering: Other (dental pain/dental caries/dental abscess/dental trauma) Progress Results/Orders Orders Procedure Category Date Status Time Bmp - Basic Metabolic LAB 02/16/[address] 02/16/17 Resulted W/Contrast 13:12 Cbc W/Auto LAB 02/16/17 Complete Diff-Reflex Manual Normal Saline (Normal PHA 02/16/17 Complete Saline Iv) 13:15 Iohexol (Omnipaque) PHA 02/16/17 Complete 13:43 Normal Saline (Ns) PHA 02/16/17 Complete 13:43 Saline Flush (Iv PHA 02/16/17 Complete Flush) 13:43 Azithromycin PHA 02/16/17 Complete (Zithromax) 15:15 Hydrocodone/Acetaminophen PHA 02/16/17 Complete (Masterson 5/325) 15:30 Lab Results Laboratory Tests Test 02/16/17 13:23 White Blood Count 10.8T/MM3 Red Blood Count 4.81M/MM3 Hemoglobin 15.5GM/DL Hematocrit 45.4% Mean Corpuscular Volume 94.4UM3 Mean Corpuscular Hemoglobin 32.2UUG Mean Corpuscular Hemoglobin Concent 34.1GM/DL RDW Standard Deviation 43.6FL Platelet Count 242T/MM3 Mean Platelet Volume 11.1UM3 Immature Granulocyte % (Auto) 0.2% Neutrophils (%) (Auto) 71.0% Lymphocytes (%) (Auto) 19.4% Monocytes (%) (Auto) 7.2% Eosinophils (%) (Auto) 1.9% Basophils (%) (Auto) 0.3% Absolute Immature Granulocyte (auto 0.02T/MM3 Absolute Neutrophils (auto) 7.6T/MM3 Absolute Lymphocytes (auto) 2.1T/MM3 Absolute Monocytes (auto) 0.8T/MM3 Absolute Eosinophils (auto) 0.2T/MM3 Absolute Basophils (auto) 0.0T/MM3 Turbidity < 20 Sodium Level 146MEQ/L Potassium Level 4.0MEQ/L Chloride Level 107MEQ/L Carbon Dioxide Level 29MEQ/L Anion Gap 10MEQ/L Blood Urea Nitrogen 6.0MG/DL Creatinine 0.7MG/DL Glomerular Filtration Rate Calc 131 BUN/Creatinine Ratio 9RATIO Glucose Level 92MG/DL Calculated Osmolality 279MOSM/KG Calcium Level 9.7MG/DL Icterus Index < 2 Chemistry Specimen Hemolysis < 15 Medications Current ED Medications Sodium Chloride (Normal Saline IV) 1,000 ml @ 999 mls/hr Q1H1M ONCE IV Last administered on 02/16/17t 13:26; Start 02/16/17 at 13:15; Stop 02/16/17 at 14:15; Status DC Iohexol 1 bottle 1 bottle STK-MED ONCE .ROUTE ; Start 02/16/17 at 13:43; Stop 02/16/17 at 13:44; Status DC Sodium Chloride (NS) 100 ml @ As Directed STK-MED ONCE .ROUTE ; Start 02/16/17 at 13:43; Stop 02/16/17 at 13:44; Status DC Sodium Chloride 10 ml 10 ml STK-MED ONCE .ROUTE ; Start 02/16/17 at 13:43; Stop 02/16/17 at 13:44; Status DC Azithromycin/ Sodium Chloride (Zithromax/NS) 250 ml @ 250 mls/hr O ONCE IV Last administered on 02/16/17 15:57; Start 02/16/17 at 15:15; Stop 02/16/17 at 16: 14; Status DC Acetaminophen/ Hydrocodone Bitart (Masterson 5/325) 1 tab O ONCE PO Last administered on 02/16/17 15:43; Start 02/16/17 at 15:30; Stop 02/16/17 at 15:31; Status DC Progress Progress Labs/imaging were discussed in detail with the patient and questions are answered. Patient is given analgesic pain medication with improvement of symptoms in the emergency department. Patient's CT scan and presentation is reviewed in detail with Dr. Alexander Armas of oral surgery who recommends switching the patient to Zithromax secondary to the patient's complaints and ALLERGIES. He also recommends providing an outpatient prescription of Zithromax after IV infusion and with close outpatient follow-up with him in his office on Sunday. Patient verbalizes agreement and understanding. Patient is discharged home in improved condition. Recommendations from oral surgery are followed. Close follow-up for the patient is obtained for Sunday morning with Dr. Alexander Armas. Patient is to return to the emergency department if his condition worsens or changes in any manner. Patient is to use [id number] analgesic pain medication as needed for pain control. Prescription for Zithromax was provided. CT CT : CT: Other (maxillofacial: Multiple periapical abscesses without post septal involvement.) KYLAH ESPINOZA DO Feb 16, 2017 15:27
[2017-02-16] MEDS ORDERED: HYDROCODONE/APAP 5 mg/325 mg TABLET PO ONE (15:30)
--- NOTE | 2017-02-16 15:43 | NUR ---
MED INSTRUCTED PT REGARDING NORCO. PT VERBALIZED UNDERSTANDING.
--- NOTE | 2017-02-16 15:50 | NUR ---
SNACK SANDWICH, APPLESAUCE AND PUDDING PROVIDED TO PT.
[2017-02-16 17:01] VITALS: BP 133/61; PULSE 67; RESP 12; TEMP 98.2; O2SAT 100
--- NOTE | 2017-02-16 17:09 | NUR ---
DEPART PT AMBULATORY TO LOBBY, HAND CUFFS, CUFFS AROUND FEET, IN CUSTODY OF SERGEANT VALDEZ.
== END 2017-02-16 17:09 | disposition home or self-care (01) ==
LOC: ED 11:49
DX: K04.7 Periapical abscess without sinus (principal)
CPT/HCPCS: 70487; 80048; 85025; 96361; 96365; 99284; J0456; J7030; J7050; Q9967